=== PATIENT | male | born 1990 | race Caucasian/White ===

== ENCOUNTER 2020-08-15 15:38 | Emergency (ER) | payer OTHER ==
[~2020-08-15] VITALS: Ht 175.3 cm; Wt 96.3 kg
[2020-08-15 15:39] VITALS: BP 130/76
[2020-08-15] MEDS ORDERED: OTEZ1TAB3 PO (15:46)
[2020-08-15] MEDS ORDERED: BACT800T5 PO (15:58)
== END 2020-08-15 16:17 | disposition home or self-care (01) ==
LOC: M ED 15:38
DX: L03.031 Cellulitis of right toe (principal); Z88.0 Allergy status to penicillin; Z88.1 Allergy status to other antibiotic agents

== ENCOUNTER → 2020-09-17 | Outpatient (REF) | payer OTHER ==
[~2020-09-17] MED LIST: BACT800T5 PO; OTEZ1TAB3 PO
[2020-09-17 13:53] LABS: SEMEN APPEARANCE OPAQUE (OPAQUE); SEMEN VISCOSITY LIQUID (LIQUID); SEMEN VOLUME 5.5 ml (2.0-5.0); WBC CONCENTRATION <=1 M/ml (<=1 M/ml)
[2020-09-17 13:54] LABS: SPERM CONCENTRATION 54.5 M/ml (>=15.0)
== END ==
LOC: M LAB REF 13:19
PROVIDERS: ATTEND Obstetrics & Gynecology
DX: N46.8 Other male infertility (principal)